=== PATIENT | male | born 1965 | race Hispanic/Latino ===

== ENCOUNTER 2016-09-05 19:04 | Inpatient (IN) | payer MEDICAID ==
[2016-09-05 19:08] VITALS: BMI 25.0
[2016-09-05] MEDS ORDERED: Flumazenil 0.1 mg/ml Inj (5ml) IVP STA (19:19)
--- NOTE | 2016-09-05 19:33 | ED PDOC ---
Arrival/HPI <Yung Boudreaux - Last Filed: 09/05/16 22:38> <Cleopatra Coyle - Last Filed: 09/06/16 01:45> - General Chief Complaint: Substance Abuse Time Seen by Provider: 09/05/16 19:16 - History of Present Illness Narrative History of Present Illness (Text): 09/05/16 19:33 51 year old M w/ Past medical history of anxiety is BIBA for drug overdose. Pt reports accidentally taking an entire bottle of Klonopin (~30pills). Pt reports recent depression but denies thoughts of self-harm or suicidal ideation. Pt believes his landlord called the ambulance. Pt unsure if he fell or how he received the abrasions on his legs B/L. (Cleopatra Coyle) Past Medical History - Provider Review Nursing Documentation Reviewed: Yes - Past History Past History: No Previous - Infectious Disease Hx of Infectious Diseases: None - Tetanus Immunization Tetanus Immunization: Unknown - Reproductive Currently : No Currently Lactating: No - Past Medical History Past Medical History: No Previous - Cardiac Hx Cardiac Disorders: No - Pulmonary Hx Respiratory Disorders: No - Neurological Hx Neurological Disorder: No - HEENT Hx HEENT Disorder: No - Renal Hx Renal Disorder: No - Endocrine/Metabolic Hx Endocrine Disorders: No - Hematological/Oncological Hx Blood Disorders: No - Integumentary Hx Dermatological Disorder: No - Musculoskeletal/Rheumatological Hx Musculoskeletal Disorders: No - Gastrointestinal Hx Gastrointestinal Disorders: No - Genitourinary/Gynecological Hx Genitourinary Disorders: No - Psychiatric Hx Psychophysiologic Disorder: Yes Hx Anxiety: Yes Hx Substance Use: No - Surgical History Hx Tonsillectomy: Yes - Anesthesia Hx Anesthesia: No Hx Anesthesia Reactions: No Hx Malignant Hyperthermia: No - Suicidal Assessment Feels Threatened In Home Enviroment: No <Cleopatra Coyle - Last Filed: 09/06/16 01:45> Family/Social History - Physician Review Nursing Documentation Reviewed: Yes Family/Social History: No Known Family HX Smoking Status: Current Some Days Smoker Hx Alcohol Use: No Hx Substance Use: No Hx Substance Use Treatment: No <Cleopatra Coyle - Last Filed: 09/06/16 01:45> Allergies/Home Meds <Yung Boudreaux - Last Filed: 09/05/16 22:38> <Cleopatra Coyle - Last Filed: 09/06/16 01:45> Allergies/Adverse Reactions: Allergies amoxicillin [From Augmentin] Allergy (Verified 09/05/16 19:07) VOMITING clavulanic acid [From Augmentin] Allergy (Verified 09/05/16 19:07) VOMITING moxifloxacin [From Avelox] Allergy (Verified 09/05/16 19:07) VOMITING Home Medications: Home Meds Medication Instructions Recorded Confirmed Alprazolam [Xanax] 0.5 mg PO PRN PRN 09/05/16 09/05/16 Review of Systems - Physician Review All systems were reviewed & negative as marked: Yes - Review of Systems Respiratory: absent: Cough Cardiovascular: absent: Chest Pain <Cleopatra Coyle - Last Filed: 09/06/16 01:45> Physical Exam Vital Signs Reviewed: Yes Temperature: Afebrile Blood Pressure: Normal Pulse: Regular Respiratory Rate: Normal Appearance: Positive for: Well-Appearing, Comfortable Pain Distress: None Mental Status: Positive for: Lethargic - Systems Exam Head: Present: Atraumatic, Normocephalic Conjunctiva: Present: Normal Mouth: Present: Moist Mucous Membranes Nose (External): Present: Atraumatic Respiratory/Chest: Present: Clear to Auscultation, Good Air Exchange. No: Respiratory Distress, Accessory Muscle Use Cardiovascular: Present: Regular Rate and Rhythm, Normal S1, S2. No: Murmurs Abdomen: No: Tenderness, Distention Back: Present: Normal Inspection Upper Extremity: Present: Normal Inspection Lower Extremity: Present: Other (abrasions to B/L shins) Neurological: Present: GCS=15. No: Speech Normal (slow) Skin: Present: Warm, Dry, Abrasion (see LE) Psychiatric: Present: Alert, Oriented x 3, Depressed Mood. No: Suicidal Ideation <Cloepatra Coyle - Last Filed: 09/06/16 01:45> Vital Signs Temp Pulse Resp BP Pulse Ox 09/05/16 19:21 98.1 F 96 H 18 122/76 95 Medical Decision Making <Yung Boudreaux - Last Filed: 09/05/16 22:38> - Lab Interpretations I have reviewed the lab results: Yes Interpretation: No clinic. lab abnormalty - EKG Interpretation Interpreted by ED Physician: Yes Type: 12 lead EKG <Cleopatra Coyle - Last Filed: 09/06/16 01:45> ED Course and Treatment: Patient Seen With Resident: In agreement with resident note and more details are present in their notes. Patient was seen and evaluated with resident, came up with plan and treatment together. Patient is a 51 year old male who presents to the emergency department for overdose on approximately 30 tablets of Klonopin. Patient thinks his landlord called the ambulance. Denies any homicidal ideation. Patient has superficial abrasions on bilateral lower extremity, unsure how he sustained them. Will order Labs, CXR, EKG, Urine Tox, and Urinalysis. (Yung Boudreaux) 09/05/16 19:41 48 year old M overdosed on Klonopine - Chest X-ray - EKG - CT Head for possible fall - CBC, CMP, Urine Tox, Urinalysis - reasses and dispo 09/05/16 19:50 poison controlled called by nursing. 09/06/16 01:42 seen by PES worker. accepted to the Psychiatric floor for depression and suicidal ideation. (Cleopatra Coyle) - Lab Interpretations Lab Results: 09/05/16 20:40 09/05/16 20:40 Lab Results 09/06/16 00:37: Urine Opiates Screen Negative, Urine Methadone Screen Negative, Ur Barbiturates Screen Negative, Ur Phencyclidine Scrn Negative, Ur Amphetamines Screen Negative, U Benzodiazepines Scrn Positive H, U Oth Cocaine Metabols Positive H, U Cannabinoids Screen Negative 09/06/16 00:37: Urine Color Yellow, Urine Appearance Sl cloudy, Urine pH 6.0, Ur Specific [place] 1.025, Urine Protein Negative, Urine Glucose (UA) Negative, Urine Ketones Negative, Urine Blood Trace-lysed H, Urine Nitrate Negative, Urine Bilirubin Negative, Urine Urobilinogen 0.2, Ur Leukocyte Esterase Negative , Urine RBC 0 - 2, Urine WBC 1 - 3, Ur Epithelial Cells 0 - 2, Urine Bacteria Trace, Hyaline Casts 0 - 2 09/05/16 20:40: Alcohol, Quantitative < 10 09/05/16 20:40: Salicylates < 1 L, Acetaminophen < 10.0 L 09/05/16 20:40: Sodium 142, Potassium 4.3, Chloride 105, Carbon Dioxide 29, Anion Gap 12, BUN 17, Creatinine 1.0, Est GFR ( Amer) > 60, Est GFR (Non- Af Amer) > 60, Random Glucose 91, Calcium 9.4, Total Bilirubin 0.9, AST 31, ALT 55, Alkaline Phosphatase 82, Total Protein 7.2, Albumin 4.4, Globulin 2.7, Albumin/Globulin Ratio 1.6 09/05/16 20:40: WBC 10.7, RBC 4.47, Hgb 13.8 L, Hct 40.7 L, MCV 91.1, MCH 30.9, MCHC 33.9, RDW 12.9, Plt Count 344, MPV 9.0, Gran % 61.4, Lymph % (Auto) 29.3, [place] % (Auto) 6.6 H, Eos % (Auto) 2.0, Baso % (Auto) 0.7, Gran # 6.55 H, Lymph # 3.1, [place] # 0.7 H, Eos # 0.2, Baso # 0.07 - RAD Interpretation Narrative RAD Interpretations (Text): 09/05/16 19:51 Chest X-ray: no active disease as interpreted by ga 09/05/16 21:[address] FINDINGS: Brain: Unremarkable. No hemorrhage. No edema. Normal enhancement. Ventricles: Unremarkable. No ventriculomegaly. Bones/joints: Unremarkable. No acute fracture. Soft tissues: Unremarkable. Sinuses: Partial opacification of the ethmoid sinus. Mastoid air cells: Unremarkable as visualized. No mastoid effusion. IMPRESSION: No acute findings. (Cleopatra Coyle) Radiology Orders: 09/05/16 19:26 CHEST PORTABLE [RAD] Stat 09/05/16 19:28 HEAD W/CONTRAST [CT] Stat - EKG Interpretation EKG Interpretation (Text): 09/05/16 20:07 EKG NSR, Rate 82, no axis rotation or deviation. (Cleopatra Coyle) - Medication Orders Current Medication Orders: Nicotine (Nicoderm Cq) 1 patch TD DAILY ASH Discontinued Medications Flumazenil (Romazicon) 0.2 mg IVP STAT STA Stop: 09/05/16 19:20 Last Admin: 09/06/16 00:47 Dose: Nicotine (Nicoderm Cq) 1 patch TD STAT STA Stop: 09/05/16 23:34 Last Admin: 09/05/16 23:50 Dose: 1 patch - PA / MATCHER OFFBEARER / Resident Statement MD/DO has reviewed & agrees with the documentation as recorded. MD/DO has examined the patient and agrees with the treatment plan. <Yung Boudreaux - Last Filed: 09/05/16 22:38> Disposition/Present on Arrival <Yung Boudreaux - Last Filed: 09/05/16 22:38> - Present on Arrival Any Indicators Present on Arrival: No History of DVT/PE: No History of Uncontrolled Diabetes: No Urinary Catheter: No History Surgical Site Infection Following: None - Disposition Have Diagnosis and Disposition been Completed?: Yes Disposition Time: 01:45 <Cleopatra Coyle - Last Filed: 09/06/16 01:45> - Disposition Diagnosis: Depression, Suicidal ideation, Drug overdose Disposition: HOSPITALIZED Condition: STABLE Referrals: Porsha Huston MD [Primary Care Provider] - Follow up with primary
[2016-09-05 20:51] LABS: ADD MANUAL DIFF? NO
[2016-09-05 21:03] LABS: BASO # 0.07 K/mm3 (0.0-2.0); BASO % 0.7 % (0.0-3.0); EOS # 0.2 (0.0-0.7); GRAN # 6.55 (1.4-6.5); GRAN % 61.4 % (50.0-68.0); HEMATOCRIT 40.7 % (42.0-52.0); LYMPH # 3.1 (1.2-3.4); LYMPH % 29.3 % (22.0-35.0); MEAN CELL VOLUME 91.1 fL (80.0-105.0); MEAN CORPUSCULAR HEMOGLOBIN 30.9 pg (25.0-35.0); MEAN CORPUSCULAR HGB CONC 33.9 g/dl (31.0-37.0); MONO # 0.7 (0.1-0.6); MONO % 6.6 % (1.0-6.0); PLATELET COUNT 344 10^3/uL (120.0-450.0); RED CELL DISTRIBUTION WIDTH 12.9 % (11.5-14.5); WHITE BLOOD COUNT 10.7 10^3/ul (4.5-11.0)
[2016-09-05 21:05] LABS: ALB/GLOB RATIO 1.6 (1.1-1.8); ALKALINE PHOSPHATASE 82 U/L (38-133); ALT/SGPT 55 U/L (7-56); AST/SGOT 31 U/L (15-59); BILIRUBIN,TOTAL 0.9 mg/dL (0.2-1.3); BLOOD UREA NITROGEN 17 mg/dL (7-21); CALCIUM 9.4 mg/dL (8.4-10.5); CARBON DIOXIDE 29 mmol/L (21-33); CHLORIDE 105 mmol/L (95-110); GFR AFRICAN-AMERICAN > 60; GLUCOSE,RANDOM 91 mg/dL (70-110); POTASSIUM 4.3 mmol/L (3.6-5.0); SODIUM 142 mmol/L (132-148); TOTAL PROTEIN 7.2 g/dL (5.8-8.3)
[2016-09-06 01:09] LABS: URINE BILIRUBIN NEGATIVE (NEGATIVE); URINE BLOOD TRACE-LYSED (NEGATIVE); URINE GLUCOSE (UA) NEGATIVE (NEGATIVE); URINE KETONE NEGATIVE (NEGATIVE); URINE LEUKOCYTE ESTERASE NEGATIVE Leu/uL (NEGATIVE); URINE PROTEIN NEGATIVE mg/dL (<30 mg/dL); URINE UROBILINOGEN 0.2 E.U./dL (<1 E.U./dL)
[2016-09-06 01:10] LABS: URINE APPEARANCE SL CLOUDY (CLEAR); URINE COLOR YELLOW (YELLOW)
[2016-09-06 01:20] LABS: URINE EPITHELIAL CELLS 0 - 2 /hpf (0-5); URINE RBC 0 - 2 /hpf (0-2)
[2016-09-06 01:21] LABS: URINE BACTERIA TRACE (NEG)
[2016-09-06] MEDS ORDERED: Magnesium Hydroxide Susp 30 ml UD PO PRN (02:40)
[2016-09-06] MEDS ORDERED: Alum-Mag Hydrox-Simethicone Susp (30 mL) PO PRN (02:40)
[2016-09-06 03:50] VITALS: O2SAT 100
--- NOTE | 2016-09-06 07:22 | CT ---
PROCEDURE: CT HEAD WITH CONTRAST HISTORY: overdose COMPARISON: None available. TECHNIQUE: Axial computed tomography images were obtained through the head/brain with intravenous contrast. Radiation dose: Total exam DLP = 822.62 mGy-cm. This CT exam was performed using one or more of the following dose reduction techniques: Automated exposure control, adjustment of the mA and/or kV according to patient size, and/or use of iterative reconstruction technique. FINDINGS: HEMORRHAGE: No intracranial hemorrhage. BRAIN: Damon-white matter differentiation is preserved. There is no mass, mass effect or abnormal extra-axial fluid collection. There is no territorial infarction. VENTRICLES: The ventricles are normal in size. There is asymmetry in the size of the lateral ventricles, right larger than left, an anatomic variant. . CALVARIUM: Unremarkable. PARANASAL SINUSES: Chronic sinusitis in the right ethmoid and sphenoid sinuses and small retention cyst/polyp in the left maxillary sinus. MASTOID AIR CELLS: Predominantly clear. No mastoid effusion. OTHER FINDINGS: None. IMPRESSION: No acute findings.
[2016-09-06 08:03] LABS: CHOLESTEROL 178 mg/dL (130-200); GLUCOSE,FASTING 86 mg/dL (65-110)
[2016-09-06 08:22] LABS: FREE T4 0.95 ng/dL (0.78-2.19)
[2016-09-06 08:36] LABS: THYROID STIMULATING HORMONE 1.41 mIU/mL (0.46-4.68)
--- NOTE | 2016-09-06 08:45 | RAD ---
HISTORY: overdose COMPARISON: No prior. FINDINGS: LUNGS: No active pulmonary disease. PLEURA: No significant pleural effusion identified, no pneumothorax apparent. CARDIOVASCULAR: Normal. OSSEOUS STRUCTURES: No significant abnormalities. VISUALIZED UPPER ABDOMEN: Normal. OTHER FINDINGS: None. IMPRESSION: No active disease.
--- NOTE | 2016-09-06 09:57 | CARD ---
APPROVED REPORT EKG Measurement Heart [id number] <Conclusion> Normal sinus rhythm Normal ECG
--- NOTE | 2016-09-06 15:14 | PCM.PSYCH ---
Initial Psychiatric Evaluation - Initial Psychiatric Evaluation Type of Admission: Voluntary Legal Status: Capacity (patient has capacity to sign consent for treatment) Chief Complaint (in patient's own words): "I was overwhelmed, I saw all the bills I need to pay, my , I wanted to sleep, I took klonopin, I did not want to kill myself, but now I realize that I could be ..." Patient's Reaction to Hospitalization: pt was admitted to the psychiatric inpatient unit for evaluation of depressive symptoms, feeling of overwhelming, s/p overdose on klonopin. pt needs further evaluation and stabilization and meds initiation and titration History of Present Illness and Precipitating Events: shortly pt is 51yo male with reported h/o depression and anxiety, denied h/o suicidal attempts, pt was discharged from the [facility] psych [place] on Monday (yesterday), pt s/p overdose on klonopin, was found unresponsive by pt's family, was brought in for evaluation, pt needed to have further evaluation and stabilization, observation. pt was seen and examined at the tx team meeting, has acceptable personal hygiene , but seems to be careless abut his appearance, not shaved, good ADLs. 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 Pt reported after of his he was feeling depressed, hopeless and helpless, worthless, has difficulties to concentrate, was not able to sleep. Pt reported after d/c from the psych [facility] he came back home filled meds in [facility], came back home , there were nobody at home, pt was feeling "overwhelmed", pt decided to take Klonopin, pt said that he had handful of meds, and swallow few pills at the time "because I wanted to sleep", pt said "I fell asleep and I woke up in the Hospital", pt was kind of remorseful, was appreciated that he is still alive. Pt said that he has a lot of financial problems too. pt said that at times he was feeling anxious, at times wakes up during the night time "I could hear my , but not hallucinating, she used to wake me up during the night time because she would need something". pt denied using drugs, pt reported smoking a pack a day, counseling provided, nicotine patch offered. pt denied v/a/t hallucinations, denied paranoid ideation. psych h/o: h/o depression since age of 14-15 after pt's father , family h/o depression pt was doing well on zoloft, wants to be resumed on it, Pt also reported was doing better on xanax. pt does not want to continue on remeron and klonopin. medical h/o: dyslipidemia 09/05/16 20:40 09/05/16 20:40 Lab Results 09/06/16 07:30: Free T4 0.95, TSH 3rd Generation 1.41 09/06/16 07:30: Fasting Glucose 86, Triglycerides 58, Cholesterol 178, LDL Cholesterol Direct 126, HDL Cholesterol 40 09/06/16 00:37: Urine Opiates Screen Negative, Urine Methadone Screen Negative, Ur Barbiturates Screen Negative, Ur Phencyclidine Scrn Negative, Ur Amphetamines Screen Negative, U Benzodiazepines Scrn Positive H, U Oth Cocaine Metabols Positive H, U Cannabinoids Screen Negative 09/06/16 00:37: Urine Color Yellow, Urine Appearance Sl cloudy, Urine pH 6.0, Ur Specific [place] 1.025, Urine Protein Negative, Urine Glucose (UA) Negative, Urine Ketones Negative, Urine Blood Trace-lysed H, Urine Nitrate Negative, Urine Bilirubin Negative, Urine Urobilinogen 0.2, Ur Leukocyte Esterase Negative , Urine RBC 0 - 2, Urine WBC 1 - 3, Ur Epithelial Cells 0 - 2, Urine Bacteria Trace, Hyaline Casts 0 - 2 09/05/16 20:40: Alcohol, Quantitative < 10 09/05/16 20:40: Salicylates < 1 L, Acetaminophen < 10.0 L 09/05/16 20:40: Sodium 142, Potassium 4.3, Chloride 105, Carbon Dioxide 29, Anion Gap 12, BUN 17, Creatinine 1.0, Est GFR ( Amer) > 60, Est GFR (Non- Af Amer) > 60, Random Glucose 91, Calcium 9.4, Total Bilirubin 0.9, AST 31, ALT 55, Alkaline Phosphatase 82, Total Protein 7.2, Albumin 4.4, Globulin 2.7, Albumin/Globulin Ratio 1.6 09/05/16 20:40: WBC 10.7, RBC 4.47, Hgb 13.8 L, Hct 40.7 L, MCV 91.1, MCH 30.9, MCHC 33.9, RDW 12.9, Plt Count 344, MPV 9.0, Gran % 61.4, Lymph % (Auto) 29.3, [place] % (Auto) 6.6 H, Eos % (Auto) 2.0, Baso % (Auto) 0.7, Gran # 6.55 H, Lymph # 3.1, [place] # 0.7 H, Eos # 0.2, Baso # 0.07 Vital Signs Temp Pulse Resp BP Pulse Ox 09/06/16 06:44 97.7 F 85 20 107/74 09/06/16 02:40 98.6 F 91 H 18 116/73 100 09/06/16 02:39 18 09/05/16 19:21 98.1 F 96 H 18 122/76 95 Current Medications: Active Medications Generic Name Dose Route Start Last Admin Trade Name Freq PRN Reason Stop Dose Admin Acetaminophen 650 mg 09/06/16 02:40 Tylenol 325mg Tab PO Q6H PRN Pain, Mild (1-3) Al Hydrox/Mg Hydrox/Simethicone 30 ml 09/06/16 02:40 Maalox Plus 30 Ml PO DAILY PRN Upset Stomach Alprazolam 0.5 mg 09/06/16 16:00 Xanax PO BID ASH Protocol Lorazepam 2 mg 09/06/16 02:34 09/06/16 14:06 Ativan PO 2 mg Q6H PRN Administration Withdrawal Symptoms Protocol Magnesium Hydroxide 30 ml 09/06/16 02:40 Milk Of Magnesia PO DAILY PRN Constipation Nicotine 1 patch 09/06/16 10:00 Nicoderm Cq TD DAILY ASH Sertraline HCl 50 mg 09/06/16 11:00 09/06/16 11:07 Zoloft PO 50 mg DAILY ASH Administration Zaleplon 5 mg 09/06/16 10:55 [place] PO HS PRN Insomnia Ziprasidone 20 mg 09/06/16 02:39 Geodon Inj IM Q6H PRN Agitation Protocol Zoloft will be resumed, Remeron will be discontinued, Klonopin discontinued, Xanax 0.5 mg twice a day Past Psychiatric History - Past Psychiatric History Previous Treatment History: Inpatient Prior Professional Help: see hPI Prior Psychiatric Treatment: see HPI At what hospital: see HPI Duration: see HPI Nature of Treatment: see HPI Explanation of prior treatment: see HPI History of Abuse: possible, but pt does not remember exactly History of ETOH/Drug Use: see hPI History of Family Illness: see HPI Pertinent Medical Hx (Current Medical&Sleep Prob, Allergies): Allergies Allergy/AdvReac Type Severity Reaction Status Date / Time amoxicillin [From Augmentin] Allergy VOMITING Verified 09/06/16 02:59 clavulanic acid Allergy VOMITING Verified 09/06/16 02:59 [From Augmentin] moxifloxacin [From Avelox] Allergy VOMITING Verified 09/06/16 02:59 Atorvastatin [Lipitor] 20 mg PO DAILY 09/06/16 Clonazepam [Klonopin] 1 mg PO BID 09/06/16 Mirtazapine [Remeron] 30 mg PO DAILY 09/06/16 Review of Systems - Review of Systems Systems not reviewed;Unavailable: Acuity of Condition - EENT Eyes: As Per HPI Ears: As Per HPI Nose/Mouth/Throat: As Per HPI - Cardiovascular Cardiovascular: As Per HPI - Respiratory Respiratory: As Per HPI - Gastrointestinal Gastrointestinal: As Per HPI - Genitourinary Genitourinary: As Per HPI - Reproductive: Male Reproductive:Male: As Per HPI - Musculoskeletal Musculoskeletal: As Par HPI - Integumentary Integumentary: As Per HPI - Neurological Neurological: As Per HPI - Psychiatric Psychiatric: As Per HPI - Endocrine Endocrine: As Per HPI - Hematologic/Lymphatic Hematologic: As Per HPI Mental Status Examination - Personal Presentation Personal Presentation: Looks stated age - Affect Affect: Flat - Motor Activity Motor Activity: Psychomotor Retardation - Reliability in Providing Information Reliability in Providing Information: Fair - Speech Speech: Organized - Mood Mood: Depressed, Anxious - Formal Thought Process Formal Thought Process: No Impairment - Obsessions/Compulsions Obsessions: None Compulsions: None - Cognitive Functions Orientation: Person, Place, Situation Sensorium: Alert Attention/Concentration: Easily distracted Abstract Thinking: [place] Estimate of Intelligence: Average Judgement: Intact, as evidence by: Insight regarding need for hospitalization - Risk Risk: Suicidal, Self-mutilation, Diminished functioning - Strength & Assets Inventory Strength & Assets Inventory: Intelligence, Family support, Cooperative - Limitations Limitations: Other (s/p overdose) DSM 5 DX - DSM 5 DSM 5 Diagnosis: r/o MDD adjustment d/o with depressed and anxious mood r/o pathological grief - Recommended/Plan of Treatment Treatment Recommendations and Plan of Treatment: milieu, structure, supportive therapy Atorvastatin [Lipitor] 20 mg PO DAILY resumed Clonazepam [Klonopin] 1 mg PO BID d/c Mirtazapine [Remeron] 30 mg PO DAILY d/c xanax 0.5bid for anxiety zoloft 50mg po daily for depression and anxiety, pt reported feeling "much better on it" medical consult SW evaluation family involvement will monitor closely Projected ELOS: 7days Prognosis: guarded Discharge Plan and Discharge Criteria: Pt will be not depressed or manic, will be more hopeful, will be not psychotic or anxious, will be not having thoughts of harming self or others, will be tolerating medications well, will not have major side effects, will be able to function, will not pose threat to self or others. - Smoking Cessation Smoking Cessation Initiated: Yes
--- NOTE | 2016-09-07 17:06 | PCM.PYCHPN ---
Psychiatric Progress Note - Psychiatric Progress Note Patient seen today, length of contact: 30 minutes Patient Chief Complaint: "I I feel much better, when I will be discharged?" Problems Identified/Issues Discussed: Suicide/ homicide prevention, past psychiatric h/o, current psychiatric symptoms , medical problems, risk/benefits and alternatives of medications, medications compliance, coping strategies, substance abuse h/o, relapse prevention, importance of follow up with psychiatrist and therapist, discharge plan. Medical Problems: dyslipidemia Diagnostic Results: 09/05/16 20:40 09/05/16 20:40 Lab Results 09/06/16 07:30: RPR Nonreactive 09/06/16 07:30: Free T4 0.95, TSH 3rd Generation 1.41 09/06/16 07:30: Fasting Glucose 86, Triglycerides 58, Cholesterol 178, LDL Cholesterol Direct 126, HDL Cholesterol 40 09/06/16 00:37: Urine Opiates Screen Negative, Urine Methadone Screen Negative, Ur Barbiturates Screen Negative, Ur Phencyclidine Scrn Negative, Ur Amphetamines Screen Negative, U Benzodiazepines Scrn Positive H, U Oth Cocaine Metabols Positive H, U Cannabinoids Screen Negative 09/06/16 00:37: Urine Color Yellow, Urine Appearance Sl cloudy, Urine pH 6.0, Ur Specific [place] 1.025, Urine Protein Negative, Urine Glucose (UA) Negative, Urine Ketones Negative, Urine Blood Trace-lysed H, Urine Nitrate Negative, Urine Bilirubin Negative, Urine Urobilinogen 0.2, Ur Leukocyte Esterase Negative , Urine RBC 0 - 2, Urine WBC 1 - 3, Ur Epithelial Cells 0 - 2, Urine Bacteria Trace, Hyaline Casts 0 - 2 09/05/16 20:40: Alcohol, Quantitative < 10 09/05/16 20:40: Salicylates < 1 L, Acetaminophen < 10.0 L 09/05/16 20:40: Sodium 142, Potassium 4.3, Chloride 105, Carbon Dioxide 29, Anion Gap 12, BUN 17, Creatinine 1.0, Est GFR ( Amer) > 60, Est GFR (Non- Af Amer) > 60, Random Glucose 91, Calcium 9.4, Total Bilirubin 0.9, AST 31, ALT 55, Alkaline Phosphatase 82, Total Protein 7.2, Albumin 4.4, Globulin 2.7, Albumin/Globulin Ratio 1.6 09/05/16 20:40: WBC 10.7, RBC 4.47, Hgb 13.8 L, Hct 40.7 L, MCV 91.1, MCH 30.9, MCHC 33.9, RDW 12.9, Plt Count 344, MPV 9.0, Gran % 61.4, Lymph % (Auto) 29.3, [place] % (Auto) 6.6 H, Eos % (Auto) 2.0, Baso % (Auto) 0.7, Gran # 6.55 H, Lymph # 3.1, [place] # 0.7 H, Eos # 0.2, Baso # 0.07 DSM 5 Symptoms Update: shortly pt is 51yo male with reported h/o depression and anxiety, denied h/o suicidal attempts, pt was discharged from the [facility] psych unit on Monday (the day prior this admission), pt s/p overdose on klonopin, was found unresponsive by pt's family, was brought in for evaluation, pt needed to have further evaluation and stabilization, observation. pt was seen and examined at the tx team room, has acceptable personal hygiene, hygiene is better. pt seems minimizing his symptoms, pt said that "I feel much better, I slept for 14 hours", this policy writer sales does not believe that pt has improvement within less than 24hrs. Pt also reported he wanted to be d/c because "I have a job interview on Monday", yesterday pt said that he is willing to stay in the hospital till Monday. this policy writer sales asked to have a family meeting with his brother, pt said his brother is on his business trip. later on pt said he is feeling anxious. pt denied thoughts of harming self or others. pt tolerated meds well, no side effects observed or reported. AIMS 0, no EPS. Impression: DSM 5 Diagnosis: r/o MDD adjustment d/o with depressed and anxious mood r/o pathological grief Medication Change: Yes Medical Record Reviewed: Yes Consults ordered or reviewed: medical consult appreciated Mental Status Examination - Cognitive Function Orientation: Person, Place, Situation Memory: Intact Attention: Poor Concentration: Poor Association: WNL Fund of Knowledge: WNL - Mood Mood: Depressed, Anxious - Affect Affect: Flat - Speech Speech: Appropriate - Language Language: Word Retrieval - Formal Thought Process Formal Thought Process: No Impairment - Suicidal Ideation Suicidal Ideation: No - Homicidal Ideation Homicidal Ideation: No Goal/Treatment Plan - Goal/Treatment Plan Need for Continued Stay: Remain at risks for inpatient hospitalization, Severe depression anxiety, Discharge may exacerbated symptoms, Failed transitioning, Severe functional impairment Progress Toward Problem(s) and Goals/Treatment Plan: milieu, structure, supportive therapy Atorvastatin [Lipitor] 20 mg PO DAILY resumed xanax 0.5 tid when necessary for anxiety zoloft 100mg po daily for depression and anxiety, pt reported feeling "much better on it" medical consult SW evaluation family involvement will monitor closely Estimated Date of D/C: 09/09/16 (we'll monitor closely)
--- NOTE | 2016-09-08 13:29 | PCM.PYCHPN ---
Psychiatric Progress Note - Psychiatric Progress Note Patient seen today, length of contact: 30 minutes Patient Chief Complaint: "I am going to palmer you..." Problems Identified/Issues Discussed: Suicide/ homicide prevention, past psychiatric h/o, current psychiatric symptoms , medical problems, risk/benefits and alternatives of medications, medications compliance, coping strategies, substance abuse h/o, relapse prevention, importance of follow up with psychiatrist and therapist, discharge plan. Medical Problems: dyslipidemia Diagnostic Results: 09/05/16 20:40 09/05/16 20:40 Lab Results 09/06/16 07:30: RPR Nonreactive 09/06/16 07:30: Free T4 0.95, TSH 3rd Generation 1.41 09/06/16 07:30: Fasting Glucose 86, Triglycerides 58, Cholesterol 178, LDL Cholesterol Direct 126, HDL Cholesterol 40 09/06/16 00:37: Urine Opiates Screen Negative, Urine Methadone Screen Negative, Ur Barbiturates Screen Negative, Ur Phencyclidine Scrn Negative, Ur Amphetamines Screen Negative, U Benzodiazepines Scrn Positive H, U Oth Cocaine Metabols Positive H, U Cannabinoids Screen Negative 09/06/16 00:37: Urine Color Yellow, Urine Appearance Sl cloudy, Urine pH 6.0, Ur Specific [place] 1.025, Urine Protein Negative, Urine Glucose (UA) Negative, Urine Ketones Negative, Urine Blood Trace-lysed H, Urine Nitrate Negative, Urine Bilirubin Negative, Urine Urobilinogen 0.2, Ur Leukocyte Esterase Negative , Urine RBC 0 - 2, Urine WBC 1 - 3, Ur Epithelial Cells 0 - 2, Urine Bacteria Trace, Hyaline Casts 0 - 2 09/05/16 20:40: Alcohol, Quantitative < 10 09/05/16 20:40: Salicylates < 1 L, Acetaminophen < 10.0 L 09/05/16 20:40: Sodium 142, Potassium 4.3, Chloride 105, Carbon Dioxide 29, Anion Gap 12, BUN 17, Creatinine 1.0, Est GFR ( Amer) > 60, Est GFR (Non- Af Amer) > 60, Random Glucose 91, Calcium 9.4, Total Bilirubin 0.9, AST 31, ALT 55, Alkaline Phosphatase 82, Total Protein 7.2, Albumin 4.4, Globulin 2.7, Albumin/Globulin Ratio 1.6 09/05/16 20:40: WBC 10.7, RBC 4.47, Hgb 13.8 L, Hct 40.7 L, MCV 91.1, MCH 30.9, MCHC 33.9, RDW 12.9, Plt Count 344, MPV 9.0, Gran % 61.4, Lymph % (Auto) 29.3, [place] % (Auto) 6.6 H, Eos % (Auto) 2.0, Baso % (Auto) 0.7, Gran # 6.55 H, Lymph # 3.1, [place] # 0.7 H, Eos # 0.2, Baso # 0.07 DSM 5 Symptoms Update: shortly pt is 51yo male with reported h/o depression and anxiety, denied h/o suicidal attempts, pt was discharged from the [facility] psych unit on Monday (the day prior this admission), pt s/p overdose on klonopin, was found unresponsive by pt's family, was brought in for evaluation, pt needed to have further evaluation and stabilization, observation. pt was seen and examined at the tx team room, with medical residents, patient presented to be irritable and angry, requested to be discharged immediately, pt was not giving consent to speak to his brother, pt also said that he harley job interview scheduled on this Monday, at the time of initial evaluation pt was willing to stay in the hospital till Monday. pt was providing conflicting h/o. Pt also said that he cannot understand why he cannot leave AMA. pt has mood swings, demanding and irritable, abusive towards RNs, minimizing his symptoms. Pt was not able to understand 48hr notice procedure, was refused to provide consent for collateral information, pt threatened this casualty underwriter that he is going to palmer her and he is going to call his jacker. at present moment pt has no insight into his illness, no collaterals, s/p overdose on klonopin, family is very concerned about pt, pt was recently d/c from [facility] and still OD on meds, poor social support, the chances that pt might commit suicide is very high. will initiate screening process. pt tolerated meds well, no side effects observed or reported. AIMS 0, no EPS. Impression: DSM 5 Diagnosis: r/o MDD adjustment d/o with depressed and anxious mood r/o pathological grief Medication Change: Yes (zoloft increased) Medical Record Reviewed: Yes Consults ordered or reviewed: medical consult appreciated Mental Status Examination - Cognitive Function Orientation: Person, Place, Situation Memory: Intact Attention: Poor Concentration: Poor Association: WNL Fund of Knowledge: WNL - Mood Mood: Depressed, Anxious - Affect Affect: Flat - Speech Speech: Appropriate - Language Language: Word Retrieval - Formal Thought Process Formal Thought Process: No Impairment - Suicidal Ideation Suicidal Ideation: No Plan: denied but it is ? - Homicidal Ideation Homicidal Ideation: No Goal/Treatment Plan - Goal/Treatment Plan Need for Continued Stay: Remain at risks for inpatient hospitalization, Severe depression anxiety, Discharge may exacerbated symptoms, Failed transitioning, Severe functional impairment Progress Toward Problem(s) and Goals/Treatment Plan: milieu, structure, supportive therapy Atorvastatin [Lipitor] 20 mg PO DAILY resumed xanax 0.5 tid when necessary for anxiety zoloft 100mg po daily for depression and anxiety, pt reported feeling better after 24 hours being on it pt submitted 48hr notice, will call [facility] for evaluation medical consult SW evaluation family involvement will monitor closely Estimated Date of D/C: 09/12/16 (we'll monitor closely)
--- NOTE | 2016-09-08 14:42 | CP.PCM.HP ---
<Ramses Medlelin - Last Filed: 09/08/16 14:36> History of Present Illness - History of Present Illness History of Present Illness: This is a 51 y/o male presenting to the ED s/p overdose with Klonopin. Patient states that is in June, and he has been experiencing grief due to this as well as insomnia. Patient states he "wanted to sleep" so he took a handful of tablets - he estimates about 20 in total. He denies suicidal ideation. The patient has no significant PMH or surgical history. Currently he offers no physical complaints. He denies shortness of breath, chest pain, abdominal pain, n/v/d. PMH: anxiety, depression PSH: Tonsillectomy in childhood Fhx: non-contributory Social hx: admits to tobacco use - 1ppd x14 years. Admits to occasional alcohol use. denies illicit drug use Allergies: Augmentin, moxifloxacin Present on Admission - Present on Admission Any Indicators Present on Admission: No Review of Systems - Constitutional Constitutional: absent: Anorexia, Chills, Headache, Night Sweats - EENT Eyes: absent: Blurred Vision, Change in Vision Nose/Mouth/Throat: absent: Nasal Congestion, Nasal Discharge - Cardiovascular Cardiovascular: absent: Chest Pain - Respiratory Respiratory: absent: Cough, Dyspnea - Gastrointestinal Gastrointestinal: absent: Abdominal Pain, Diarrhea, Nausea, Vomiting - Genitourinary Genitourinary: absent: Dysuria, Hematuria - Musculoskeletal Musculoskeletal: absent: Back Pain, Neck Pain - Integumentary Integumentary: absent: Rash - Neurological Neurological: absent: Abnormal Speech, Behavioral Changes, Confusion, Dizziness , Numbness, Focal Weakness, Headaches, Syncope - Psychiatric Psychiatric: Anxiety, Depression. absent: Suicidal Ideation - Endocrine Endocrine: absent: Fatigue, Palpitations Past Patient History - Infectious Disease Hx of Infectious Diseases: None - Tetanus Immunizations Tetanus Immunization: Unknown - Past Social History Smoking Status: Current Some Days Smoker - CARDIAC Hx Cardiac Disorders: No - PULMONARY Hx Respiratory Disorders: No - NEUROLOGICAL Hx Neurological Disorder: No - HEENT Hx HEENT Problems: No - RENAL Hx Chronic Kidney Disease: No - ENDOCRINE/METABOLIC Hx Endocrine Disorders: No - HEMATOLOGICAL/ONCOLOGICAL Hx Blood Disorders: No - INTEGUMENTARY Hx Dermatological Problems: No - MUSCULOSKELETAL/RHEUMATOLOGICAL Hx Musculoskeletal Disorders: No - GASTROINTESTINAL Hx Gastrointestinal Disorders: No - GENITOURINARY/GYNECOLOGICAL Hx Genitourinary Disorders: No - PSYCHIATRIC Hx Depression: Yes Hx Substance Use: Yes - SURGICAL HISTORY Hx Tonsillectomy: Yes - ANESTHESIA Hx Anesthesia: No Hx Anesthesia Reactions: No Hx Malignant Hyperthermia: No Meds Allergies/Adverse Reactions: Allergies Allergy/AdvReac Type Severity Reaction Status Date / Time amoxicillin [From Augmentin] Allergy VOMITING Verified 09/06/16 02:59 clavulanic acid Allergy VOMITING Verified 09/06/16 02:59 [From Augmentin] moxifloxacin [From Avelox] Allergy VOMITING Verified 09/06/16 02:59 Physical Exam - Constitutional Appears: Non-toxic - Head Exam Head Exam: ATRAUMATIC, NORMOCEPHALIC - Eye Exam Eye Exam: EOMI, PERRL - ENT Exam ENT Exam: Mucous Membranes Moist - Neck Exam Neck exam: Positive for: Full Rom, Normal Inspection. Negative for: Lymphadenopathy - Respiratory Exam Respiratory Exam: Clear to Auscultation Bilateral. absent: Rales, Rhonchi, Wheezes - Cardiovascular Exam Cardiovascular Exam: REGULAR RHYTHM, +S1, +S2 - GI/Abdominal Exam GI & Abdominal Exam: Normal Bowel Sounds, Soft. absent: Distended - Extremities Exam Extremities exam: Negative for: calf tenderness, pedal edema - Back Exam Back exam: NORMAL INSPECTION - Neurological Exam Neurological exam: Alert, Oriented x3 - Psychiatric Exam Psychiatric exam: Normal Affect, Normal Mood - Skin Skin Exam: Normal Color, Warm Results - Vital Signs Recent Vital Signs: Last Vital Signs Temp 98.2 F 09/08/16 06:52 Pulse 84 09/08/16 06:52 Resp 20 09/08/16 06:52 BP 121/83 09/08/16 06:52 Pulse Ox 100 09/06/16 02:40 - Labs Result Diagrams: 09/05/16 20:40 09/05/16 20:40 Assessment & Plan - Assessment and Plan (Free Text) Assessment: 51 y/o male presenting with accidental overdose of Klonopin who is admitted to the psychiatric unit. Patient denies suicidal ideation. He has no significant PMH and takes no prescription medications other than antidepressant and Xanax. 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 at this time - psychiatric management per psych team - no further medical management is needed at this time - will continue to follow patient peripherally <Scott Waters - Last Filed: 09/09/16 14:45> Results - Vital Signs Recent Vital Signs: Last Vital Signs Temp 98.5 F 09/09/16 07:30 Pulse 95 H 09/09/16 07:30 Resp 20 09/09/16 07:30 BP 118/81 09/09/16 07:30 Pulse Ox 100 09/06/16 02:40 - Labs Result Diagrams: 09/05/16 20:40 09/05/16 20:40 Attending/Attestation - Attestation I have personally seen and examined this patient.: Yes I have fully participated in the care of the patient.: Yes I have reviewed all pertinent clinical information: Yes Notes (Text): I have seen and examined patient at bedside. Agree with the above note with the following additions/ exceptions: Briefly this is 51 year old male with history of anxiey, depression, dyslipidemia, smoker, cocaine use who got admitted after unintentional overdose of klonopin. Denies suicidal ideation and denies any other complaints. Manage as per psych. Life style modification recommended for dyslipidemia. Counselling provided regarding tobacco and cocaine use. Advised patient to follow up with Dr Huston within 3-[address] Scott Waters
[2016-09-09 07:31] VITALS: BP 118/81; PULSE 95; RESP 20; TEMP 98.5
--- NOTE | 2016-09-09 10:34 | PCM.PYCHDC ---
Mental Status Examination - Mental Status Examination Orientation: Person, Place, Situation Memory: Intact Mood: Depressed (patient denied but obviously depressed and irritable), Anxious (seems to be restless) Affect: Constricted (irritable, angry) Speech: Appropriate Attention: Poor Concentration: Poor Association: Loose Fund of Knowledge: WNL Formal Thought Process: No Impairment Description of patient's judgement and insight: no insight and poor judgment Psychotic Thoughts and Behaviors: denied Suicidal Ideation: No Current Homicidal Ideation?: No Plan: pt was minimizing all of his symptoms Discharge Summary - Discharge Note Reason for Hospitalization: pt was admitted to the psychiatric inpatient unit for evaluation of depressive symptoms, feeling of overwhelming, s/p overdose on klonopin. pt needs further evaluation and stabilization and meds initiation and titration Psychiatric History (includes Medical, Family, Personal Hx): see HPI Laboratory Data: 09/05/16 20:40 09/05/16 20:40 Lab Results 09/06/16 07:30: RPR Nonreactive 09/06/16 07:30: Free T4 0.95, TSH 3rd Generation 1.41 09/06/16 07:30: Fasting Glucose 86, Triglycerides 58, Cholesterol 178, LDL Cholesterol Direct 126, HDL Cholesterol 40 09/06/16 00:37: Urine Opiates Screen Negative, Urine Methadone Screen Negative, Ur Barbiturates Screen Negative, Ur Phencyclidine Scrn Negative, Ur Amphetamines Screen Negative, U Benzodiazepines Scrn Positive H, U Oth Cocaine Metabols Positive H, U Cannabinoids Screen Negative 09/06/16 00:37: Urine Color Yellow, Urine Appearance Sl cloudy, Urine pH 6.0, Ur Specific [place] 1.025, Urine Protein Negative, Urine Glucose (UA) Negative, Urine Ketones Negative, Urine Blood Trace-lysed H, Urine Nitrate Negative, Urine Bilirubin Negative, Urine Urobilinogen 0.2, Ur Leukocyte Esterase Negative , Urine RBC 0 - 2, Urine WBC 1 - 3, Ur Epithelial Cells 0 - 2, Urine Bacteria Trace, Hyaline Casts 0 - 2 09/05/16 20:40: Alcohol, Quantitative < 10 09/05/16 20:40: Salicylates < 1 L, Acetaminophen < 10.0 L 09/05/16 20:40: Sodium 142, Potassium 4.3, Chloride 105, Carbon Dioxide 29, Anion Gap 12, BUN 17, Creatinine 1.0, Est GFR ( Amer) > 60, Est GFR (Non- Af Amer) > 60, Random Glucose 91, Calcium 9.4, Total Bilirubin 0.9, AST 31, ALT 55, Alkaline Phosphatase 82, Total Protein 7.2, Albumin 4.4, Globulin 2.7, Albumin/Globulin Ratio 1.6 09/05/16 20:40: WBC 10.7, RBC 4.47, Hgb 13.8 L, Hct 40.7 L, MCV 91.1, MCH 30.9, MCHC 33.9, RDW 12.9, Plt Count 344, MPV 9.0, Gran % 61.4, Lymph % (Auto) 29.3, [place] % (Auto) 6.6 H, Eos % (Auto) 2.0, Baso % (Auto) 0.7, Gran # 6.55 H, Lymph # 3.1, [place] # 0.7 H, Eos # 0.2, Baso # 0.07 Vital Signs Temp Pulse Resp BP Pulse Ox 09/09/16 07:30 98.5 F 95 H 20 118/81 09/08/16 15:55 91 H 18 135/93 H 09/08/16 06:52 98.2 F 84 20 121/83 09/07/16 16:31 90 131/85 09/07/16 07:15 98.2 F 80 20 112/73 09/06/16 16:58 96 H 110/76 09/06/16 06:44 97.7 F 85 20 107/74 09/06/16 02:40 98.6 F 91 H 18 116/73 100 09/06/16 02:39 18 09/05/16 19:21 98.1 F 96 H 18 122/76 95 Consultations:: List each consultation separately and include: 1. Reason for request. 2. Findings. 3. Follow-up Consultations: medical consult appreciated see notes for more detailed information Summary of Hospital Course include:: 1. Description of specific treatment plan utilized for patients during their course of treatmen. 2. Summarize the time- course for resolution of acute symptoms and/or regressed behaviors. 3. Describe issues identified and worked on during hospitalization. 4. Describe medication utilized. 5. Describe medical problems identified and treated. 6. Reassessment of suicide risk Summary of Hospital Course: shortly pt is 51yo male with reported h/o depression and anxiety, denied h/o suicidal attempts, pt was discharged from the [facility] psych unit on Monday (yesterday), pt s/p overdose on klonopin, was found unresponsive by pt's family, was brought in for evaluation, pt needed to have further evaluation and stabilization, observation. initially pt presented with acceptable personal hygiene, but seems to be careless abut his appearance, not shaved, good ADLs. 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 Pt reported after of his he was feeling depressed, hopeless and helpless, worthless, has difficulties to concentrate, was not able to sleep. Pt reported after d/c from the psych [facility] he came back home filled meds in [facility], came back home , there were nobody at home, pt was feeling "overwhelmed", pt decided to take Klonopin, pt said that he had handful of meds, and swallow few pills at the time "because I wanted to sleep", pt said "I fell asleep and I woke up in the Hospital", pt was kind of remorseful, was appreciated that he is still alive. Pt said that he has a lot of financial problems too. pt said that at times he was feeling anxious, at times wakes up during the night time "I could hear my , but not hallucinating, she used to wake me up during the night time because she would need something". pt denied using drugs, pt reported smoking a pack a day, counseling provided, nicotine patch offered. pt denied v/a/t hallucinations, denied paranoid ideation. psych h/o: h/o depression since age of 14-15 after pt's father , family h/o depression pt was doing well on zoloft, wants to be resumed on it, Pt also reported was doing better on xanax. pt does not want to continue on remeron and klonopin. medical h/o: dyslipidemia 09/05/16 20:40 09/05/16 20:40 Lab Results 09/06/16 07:30: Free T4 0.95, TSH 3rd Generation 1.41 09/06/16 07:30: Fasting Glucose 86, Triglycerides 58, Cholesterol 178, LDL Cholesterol Direct 126, HDL Cholesterol 40 09/06/16 00:37: Urine Opiates Screen Negative, Urine Methadone Screen Negative, Ur Barbiturates Screen Negative, Ur Phencyclidine Scrn Negative, Ur Amphetamines Screen Negative, U Benzodiazepines Scrn Positive H, U Oth Cocaine Metabols Positive H, U Cannabinoids Screen Negative 09/06/16 00:37: Urine Color Yellow, Urine Appearance Sl cloudy, Urine pH 6.0, Ur Specific [place] 1.025, Urine Protein Negative, Urine Glucose (UA) Negative, Urine Ketones Negative, Urine Blood Trace-lysed H, Urine Nitrate Negative, Urine Bilirubin Negative, Urine Urobilinogen 0.2, Ur Leukocyte Esterase Negative , Urine RBC 0 - 2, Urine WBC 1 - 3, Ur Epithelial Cells 0 - 2, Urine Bacteria Trace, Hyaline Casts 0 - 2 09/05/16 20:40: Alcohol, Quantitative < 10 09/05/16 20:40: Salicylates < 1 L, Acetaminophen < 10.0 L 09/05/16 20:40: Sodium 142, Potassium 4.3, Chloride 105, Carbon Dioxide 29, Anion Gap 12, BUN 17, Creatinine 1.0, Est GFR ( Amer) > 60, Est GFR (Non- Af Amer) > 60, Random Glucose 91, Calcium 9.4, Total Bilirubin 0.9, AST 31, ALT 55, Alkaline Phosphatase 82, Total Protein 7.2, Albumin 4.4, Globulin 2.7, Albumin/Globulin Ratio 1.6 09/05/16 20:40: WBC 10.7, RBC 4.47, Hgb 13.8 L, Hct 40.7 L, MCV 91.1, MCH 30.9, MCHC 33.9, RDW 12.9, Plt Count 344, MPV 9.0, Gran % 61.4, Lymph % (Auto) 29.3, [place] % (Auto) 6.6 H, Eos % (Auto) 2.0, Baso % (Auto) 0.7, Gran # 6.55 H, Lymph # 3.1, [place] # 0.7 H, Eos # 0.2, Baso # 0.07 Vital Signs Temp Pulse Resp BP Pulse Ox 09/06/16 06:44 97.7 F 85 20 107/74 09/06/16 02:40 98.6 F 91 H 18 116/73 100 09/06/16 02:39 18 09/05/16 19:21 98.1 F 96 H 18 122/76 95 over the course of this hospitalization, pt was minimizing all of his symptoms refused to give consent for collateral information still has labile mood no remorse for his overdose on klonopin pt wants to be discharged, submitted 48hr notice pt was screened by [facility], was accepted under involuntary status pt will be transferred there for further evaluation and stabilization because pt is on high risk of suicide. - Diagnosis (1) MDD (major depressive disorder), severe Current Visit: Yes Status: Acute - Final Diagnosis (DSM 5) Condition upon Discharge: STABLE Disposition: DISCHARGE TO PSYCH HOSPITAL Follow-up Treatment Plan: over the course of this hospitalization, pt was minimizing all of his symptoms refused to give consent for collateral information still has labile mood no remorse for his overdose on klonopin pt wants to be discharged, submitted 48hr notice pt was screened by [facility], was accepted under involuntary status pt will be transferred there for further evaluation and stabilization because pt is on high risk of suicide. - Smoking Cessation Smoking Cessation Medication prescribed: Yes - Antipsychotic Medications Pt discharged on 2 or more routine antipsychotic medications: No
== END 2016-09-09 12:01 | DRG 430 ==
LOC: ED 19:04 → ERH 09-06 01:42 → PSYC 09-06 02:31
PROVIDERS: ADMIT Psychiatry & Neurology Psychiatry; ATTEND Psychiatry & Neurology Psychiatry
DX: F32.2 Major depressive disorder, single episode, severe without psychotic features (principal); R45.851 Suicidal ideations; F43.23 Adjustment disorder with mixed anxiety and depressed mood; E78.5 Hyperlipidemia, unspecified; Z91.5 Personal history of self-harm; Z59.9 Problem related to housing and economic circumstances, unspecified; Z72.0 Tobacco use; Z79.899 Other long term (current) drug therapy; Z81.8 Family history of other mental and behavioral disorders; S80.812A Abrasion, left lower leg, initial encounter; S80.811A Abrasion, right lower leg, initial encounter; Z91.81 History of falling; Z88.1 Allergy status to other antibiotic agents; Z88.8 Allergy status to other drugs, medicaments and biological substances; R40.2412 Glasgow coma scale score 13-15, at arrival to emergency department